=== PATIENT | female | born 1950 | race Two or more races ===

== ENCOUNTER 2025-04-24 09:22 | Outpatient (CLI) | payer OTHER ==
[2025-04-24 10:36] LABS: BASO % 1.4 % (0.1-1.2); EOS % 2.8 % (0.7-7.0); HEMOGLOBIN 12.8 g/dL (11.2-15.7); LYMPH % 36.6 % (19.3-53.1); MEAN CORPUSCULAR HEMOGLOBIN 31.7 pg (25.6-32.2); MONO # 0.22 (0.24-0.82); MONO % 6.2 % (4.7-12.5); NEUT # 1.88 (1.56-6.13); PLATELET COUNT 229 K/uL (163-369); RED BLOOD COUNT 4.04 M/uL (3.93-5.22); RED CELL DISTRIBUTION WIDTH 12.9 % (11.6-14.4)
[2025-04-24 10:42] LABS: URINE APPEARANCE Clear; URINE BILIRRUBIN Negative (NEGATIVE); URINE BLOOD Trace; URINE COLOR Yellow; URINE GLUCOSE Negative (NEGATIVE); URINE KETONE Negative (NEGATIVE); URINE LEUKOCYTE Negative; URINE NITRATE Negative; URINE PROTEIN Negative (NEGATIVE); URINE UROBILINOGEN 0.2 E.U./dl
[2025-04-24 10:43] LABS: URINE BACTERIA 79.5 uL (0.0-1933); URINE EPITHELIAL CELLS 6.9 uL (0.0-38.8); URINE RBC 6.7 uL (0.0-20.8); URINE WBC 6.4 uL (0.0-23.2)
[2025-04-24 11:31] LABS: % SATURACION 28.3 % (15-50); ALBUMIN 4.1 gm/dL (3.4-5.0); BILIRUBIN TOTAL 0.34 mg/dL (0.3-1.2); CALCIUM 9.8 mg/dL (8.5-10.1); CREATININE SERUM 0.92 mg/dL (0.55-1.02); FERRITIN 43.1 NG/ML (8-252); GFR 59.67; GLOBULINA 3.5 G/DL (2.4-3.5); POTASSIUM 4.51 mEq/L (3.5-5.1); TOTAL PROTEIN 7.6 gm/dL (6.4-8.2); TSH 2.93 uIU/mL (0.358-3.74)
[2025-04-24 11:57] LABS: T4 FREE 2.41 NG/ML (0.76-1.46)
[2025-04-26 09:12] LABS: FOLIC ACID 19.31 ng/ml (4.78-20)
[2025-04-27 09:08] LABS: CA 125 9.8 U/mL (0.0-38.1)
[2025-04-27 13:08] LABS: ANTI THYROID PEROXIDASE < 9 IU/mL (0-34)
[2025-04-27 15:12] LABS: hgb a 97.2 % (96.4-98.8); hgb a2 2.8 % (1.8-3.2); hgb f 0 % (0.0-2.0); hgb s 0 % (0.0)
[2025-04-28 11:08] LABS: g6pd quant 224 (127-427); rbc 4.09 x10E6/uL (3.77-5.28)
== END 2025-04-24 09:27 | disposition home or self-care (01) ==
LOC: LAB 09:22
PROVIDERS: ATTEND Internal Medicine Hematology & Oncology
DX: D72.818 Other decreased white blood cell count (principal); D51.3 Other dietary vitamin B12 deficiency anemia; D53.0 Protein deficiency anemia; E78.2 Mixed hyperlipidemia; E03.8 Other specified hypothyroidism; I10 Essential (primary) hypertension

== ENCOUNTER → 2025-07-01 10:20 | Outpatient (CLI) | payer OTHER ==
[2025-07-01 10:39] LABS: BASO % 0.7 % (0.1-1.2); EOS # 0.20 (0.04-0.54); EOS % 4.6 % (0.7-7.0); LYMPH # 1.76 (1.18-3.74); LYMPH % 40.5 % (19.3-53.1); MEAN PLATELET VOLUME 9.40 fl (9.4-12.4); MONO # 0.33 (0.24-0.82); MONO % 7.6 % (4.7-12.5); NEUT # 2.03 (1.56-6.13); NEUT % 46.6 % (34.0-71.1); RED CELL DISTRIBUTION WIDTH 12.6 % (11.6-14.4)
== END | disposition home or self-care (01) ==
LOC: LAB 10:20
PROVIDERS: ATTEND Internal Medicine Hematology & Oncology
DX: D50.8 Other iron deficiency anemias (principal); R79.9 Abnormal finding of blood chemistry, unspecified; D72.818 Other decreased white blood cell count; D51.3 Other dietary vitamin B12 deficiency anemia; D53.0 Protein deficiency anemia; E78.2 Mixed hyperlipidemia; E03.8 Other specified hypothyroidism; I10 Essential (primary) hypertension; K59.00 Constipation, unspecified